=== PATIENT | male | born 1940 | race Caucasian/White ===

== ENCOUNTER 2022-12-25 23:32 | Inpatient (IN) | payer MEDICARE, OTHER ==
[~2022-12-25] VITALS: Ht 175.3 cm; Wt 69.9 kg
[2022-12-25] MEDS ORDERED: AMLO5 PO (23:55)
[2022-12-25] MEDS ORDERED: Aspir 8181 MG PO (23:55)
[2022-12-25] MEDS ORDERED: ATEN100 PO (23:56)
[2022-12-25] MEDS ORDERED: ATOR80 PO (23:56)
[2022-12-25] MEDS ORDERED: LISI20 PO (23:56)
--- NOTE | 2022-12-26 01:58 | NUR ---
NEW ADMIT PT NEW ADMIT TO THE FLOOR FROM [facility]. ARRIVED IN NO DISTRESS, CIRCULATION AND SENSATION IN RLE INTACT. PT A/OX4, ON RA, TELE IN PLACE. SR @101 WITH BBB AND PROLONGED QTC @ .52. SURGICAL [place] COMPLETE, PT NPO FOR SURGERY TOMORROW. MEDICATED FOR PAIN.
--- NOTE | 2022-12-26 03:41 | NUR ---
TELE NOTIFIED PRIMARY RN OF [facility]. PRIMARY RN ASSESSED PT AND OBTAINED VS. VSS AND PT ASYMPTOMATIC. THIS RN NOTIFIED DR. DOTSON + EKG OBTAINED. DR. DOTSON AT BEDSIDE TO REVIEW EKG. DR. DOTSON PLACING NEW ORDERS FOR LABS. WILL CONT TO MONITOR.
--- NOTE | 2022-12-26 04:03 | NUR ---
VSS. SEE PREVIOUS NOTE FOR TELE CHANGES. PT HAS SLEPT ON AND OFF SINCE ARRIVING TO THE FLOOR. PT MEDICATED FOR PAIN WITH TYLENOL AND FENTYNAL. CIRCULATION AND SENSATION REMAINS INTACT IN RLE. VOIDING W/O DIFFICULTY. PLAN FOR PT TO HAVE AN ORTHO CONSULT TODAY. PT IS CURRENTLY RESTING IN BED, IN NO DISTRESS, CALL LIGHT IN REACH
[2022-12-26 04:28] LABS: Hematocrit 29.9 % (37.0-53.0); Hemoglobin 10.4 g/dL (13.5-17.5); Mean Corpuscular HGB 31.2 pg (26.0-34.0); Mean Corpuscular HGB Conc 34.8 g/dL (31.5-36.5); Mean Corpuscular Volume 90 fL (80-100); Mean Platelet Volume 11.1 fL (9.1-12.4); Platelet Count 165 K/mm3 (150-400); RDW Standard Deviation 46.1 fL (35.1-46.3); Red Blood Cell Count 3.33 M/mm3 (4.30-5.90); White Blood Cell Count 10.22 K/mm3 (4.00-11.30)
[2022-12-26 04:52] LABS: Bun/Creatinine Ratio 18.3 (12.0-20.0); Calcium, Blood 8.7 mg/dL (8.5-10.1); Creatinine, Blood 2.3 mg/dL (0.60-1.20)
--- NOTE | 2022-12-26 10:02 | NUR ---
"Spiritual Care | Rapid Reponse - NOK Contact After Rapid response is called, Pt. has been transfered to ICU11. This cook helper contacted Pts. son listed as NOK by phone. Palliative care nurse Fabiana bachsed the call. Pts. son verbalized that while the Pt. is listed as Full Code that he did not believe the Pt. would want heroic measures taken. Son verbalized the Pt. regretted the decision for life support that his endured. The son verbalized gratitude for the call and will remain available at [phone] for further support decisions."
--- NOTE | 2022-12-26 10:13 | NUR ---
Pt arrived to ICU 11 at 0951 from Medical floor s/p rapid response for N/V and brdaycardia.
[2022-12-26 10:39] LABS: Magnesium, Blood 2.2 mg/dL (1.6-2.4); Phosphorus, Blood 3.2 mg/dL (2.5-4.9)
--- NOTE | 2022-12-26 12:08 | NUR ---
AT AROUND 0945 THIS RN WAS NOTIFIED BY TELEMETRY THAT THE PT WAS IN ASYSTOLE. THIS RN IMMEDIATELY CHECKED ON THE PATIENT AND FOUND HIM RESPONSIVE BUT C/O NAUSEA. PT'S ALERTNESS BEGAN TO WAX AND WANE AND PT APPEARED PALE. THIS RN THEN CALLED A RAPID RESPONSE AND PT WAS TRANSPORTED TO ICU. REPORT GIVEN TO BUSINESS DEVELOPMENT PROFESSIONAL.
--- NOTE | 2022-12-26 12:54 | NUR ---
Spoke w/ OR and pt was not on the shcedule for surgery today. Ordering a diet so pt can eat per Dr. Mckeon.
--- NOTE | 2022-12-26 17:13 | NUR ---
Called report to David RN for PCU #8. RN will transport pt from ICU to PCU w/ personal effects.
--- NOTE | 2022-12-26 17:14 | NUR ---
Pt's daughter is Maile Garza, cell # [phone]. She is located in [place], [place] and would like updates on any changes.
--- NOTE | 2022-12-26 17:35 | NUR ---
RN assisted Shameka JOHNSTON w/ transporting pt from ICU # 11 to PCU #8. Brought all of his personal effects, clothing, cellphone and prosethic leg. All were left in his new room in PCU #8 and his cellphone was left on his lap.
[2022-12-27 03:41] LABS: Hematocrit 29.1 % (37.0-53.0); Hemoglobin 9.6 g/dL (13.5-17.5); Mean Corpuscular HGB 30.4 pg (26.0-34.0); Mean Corpuscular Volume 92 fL (80-100); Mean Platelet Volume 11.7 fL (9.1-12.4); Platelet Count 167 K/mm3 (150-400); RDW Coefficient Variation 14.6 % (11.7-14.2); RDW Standard Deviation 49.2 fL (35.1-46.3); Red Blood Cell Count 3.16 M/mm3 (4.30-5.90)
[2022-12-27 04:02] LABS: Albumin, Blood 2.9 g/dL (3.4-5.0); Anion Gap 5 mmol/L (6-16); Blood Urea Nitrogen 48 mg/dL (8-24); Bun/Creatinine Ratio 17.4 (12.0-20.0); CO2, Blood 22 mmol/L (21-32); Calcium, Blood 8.4 mg/dL (8.5-10.1); Chloride, Blood 109 mmol/L (98-108); Creatinine, Blood 2.76 mg/dL (0.60-1.20); Glomerular Filtration Rate 22 (60-); Glucose, Blood 106 mg/dL (70-99); Phosphorus, Blood 3.4 mg/dL (2.5-4.9); Potassium, Blood 4.6 mmol/L (3.5-5.5); Sodium, Blood 136 mmol/L (136-145)
--- NOTE | 2022-12-27 05:13 | NUR ---
SHIFT SUMMARY: PT ALERT AND ORIENTED X4, ABLE TO FOLLOW COMMANDS AND MAKE NEEDS KNOWN. COOPERATIVE WITH CARE. BP STABLE, HR SR 60'S, AFEBRILE, ON RA, SATURATIONS >95%. RESPIRATIONS EVEN AND UNLABORED. PT WITH R. FEMUR FRACTURE, SENSATION INTACT, SKIN WARM AND DRY. MEDICATED X2 FOR PAIN THIS SHIFT. NO REPORTS OF N/V. [facility] NOTED ON TELEMETRY, DR. LIVINGSTON AWARE, SEE MD NOTE. REPOS Q2 TO MAINTAIN SKIN INTEGRITY. PT INC OF URINE AT NIGHT, ATTENDS CHANGED. NO BM. PT REPORTS LIVING ALONE IN TRAILER, POSSIBLE PT/OT, HOME HEALTH EVAL NEEDEED. CURRENTLY NPO FOR POSSIBLE SURG IN AM. BED IN LOW, CALL LIGHT IN REACH, WILL REPORT TO ONCOMING RN.
--- NOTE | 2022-12-27 11:02 | NUR ---
Pt. is somnilent but responds when I enter the room. Pt. is pleasant but unsettled about the discomfort in his hip. Listen with empathy and a calming presence. Normalize the Pt. experience, Pt. displays evidence of being uncomfortable and attempts to reposition himself. PT. also displays evidence of engagement and awareness. Prayed with Pt. Pt. verbalized gratitude for the spiritual care visit.
[2022-12-28 04:05] LABS: Hematocrit 26.5 % (37.0-53.0); Mean Corpuscular HGB 30.9 pg (26.0-34.0); Mean Corpuscular Volume 91 fL (80-100); Mean Platelet Volume 11.6 fL (9.1-12.4); Platelet Count 160 K/mm3 (150-400); RDW Coefficient Variation 14.4 % (11.7-14.2); RDW Standard Deviation 48.6 fL (35.1-46.3); Red Blood Cell Count 2.91 M/mm3 (4.30-5.90); White Blood Cell Count 9.92 K/mm3 (4.00-11.30)
[2022-12-28 04:19] LABS: Albumin, Blood 2.6 g/dL (3.4-5.0); Anion Gap 8 mmol/L (6-16); Blood Urea Nitrogen 48 mg/dL (8-24); Bun/Creatinine Ratio 18.3 (12.0-20.0); CO2, Blood 21 mmol/L (21-32); Calcium, Blood 8.3 mg/dL (8.5-10.1); Chloride, Blood 108 mmol/L (98-108); Creatinine, Blood 2.63 mg/dL (0.60-1.20); Glomerular Filtration Rate 23 (60-); Glucose, Blood 110 mg/dL (70-99); Phosphorus, Blood 3.4 mg/dL (2.5-4.9); Potassium, Blood 4.5 mmol/L (3.5-5.5); Sodium, Blood 137 mmol/L (136-145)
--- NOTE | 2022-12-28 05:08 | NUR ---
SHIFT SUMMARY: PT WITH NO ACUTE CHANGES THIS SHIFT, REMAINS ALERT AND ORIENTED X4, ABLE TO FOLLOW COMMANDS AND MAKE NEEDS KNOWN. BP STABLE, HR SR 70'S, [facility] NOTED IN TELEMETRY, MD AWARE. NO COMPLAINTS OF CP/PRESSURE THROUGHOUT THE NIGHT. PT NPO SINCE 0000 FOR SURG IN AM. ABLE TO USE URINAL IND AT BEDSIDE. NO BM. BED IN LOW, CALL LIGHT IN REACH, WILL REPORT TO ONCOMING RN.
--- NOTE | 2022-12-28 07:23 | NUR ---
ASSUMED CARE: PT SITTING UPRIGHT IN BED TALKING TO STAFF. ON RA. NSR WITH ST DEPRESSION AND BBB IN 80S ON TELE. TALKING TO DAUGHTER ON PHONE. NO ACUTE NEEDS AT THIS TIME.
--- NOTE | 2022-12-28 10:56 | NUR ---
OR CALLED TO VERIFY NPO STATUS AND THAT RECENT EKG HAS BEEN DONE. PT HAS BEEN NPO SINCE NH. EKG COMPLETED. DIETITIAN AT BEDSIDE AND PT C/O FEELING DEHYDRATED. REPORTED TO DIETITIAN THAT PT HAS BEEN CONFUSED, ASKING IF CIGARS WERE ON HIS TABLE AND IF HIS TRUCK WAS IN HALLWAY. DIETITIAN STATES SHE WILL CALL DR AND DISCUSS SYMPTOMS AND ASK ABOUT FLUID ORDERS DUE TO NPO STATUS.
--- NOTE | 2022-12-28 11:20 | NUR ---
PT TAKEN TO XRAY PER ORDERS FROM DR CAGE. ESCORTED VIA [facility]
--- NOTE | 2022-12-28 11:54 | NUR ---
DR CAGE CAME TO SEE PT AND DISCUSSED PLAN FOR SURGERY. DR AWARE THAT PT HAS BEEN NPO AND THAT THIS RN WAS TOLD BY NIGHT RN THAT CARDIOLOGY SIGNED OFF. DR STATES TO KEEP PT NPO AT THIS TIME.
--- NOTE | 2022-12-28 13:43 | NUR ---
PT TAKEN TO SURGERY BY OR STAFF AT THIS TIME.
--- NOTE | 2022-12-28 14:09 | NUR ---
Surgical site prepped with 2% Chlorhexidine cloth wipe. History, Chart, Medications and Allergies reviewed before start of procedure.Lungs clear T/O to Auscultation. PER CALL TO DR. LIVINGSTON, PATIENT HAS CARDIAC CLEARANCE FOR SURGERY.
--- NOTE | 2022-12-28 15:04 | NUR ---
REPORT GIVEN TO YEHUDA COFFEY. PT CURRENTLY IN OR AND WILL BE TRANSFERRED TO ROOM 217 AFTER SURGERY. DAY SURGERY AWARE OF TRANSFER.
--- NOTE | 2022-12-28 18:17 | NUR ---
POST OP: REPORT RECEIVED FROM SAFETY RISK LEADYEHUDA SOSA. PT TO UNIT AT ABOUT 1745. PT IS A/O, VSS. SURGICAL SITE WNL. R POPLITEAL PULSE +2, R LEG IS WARM AND PINK. PT DENIES PAIN/NAUSEA AT THIS TIME. LUNGS ARE CLEAR AND DIM AT BASES. PT INSTRUCTED TO USE CALL LIGHT, BED ALARM ON FOR SAFETY. WILL CTM AND PASS REPORT TO NOC YEHUDA.
--- NOTE | 2022-12-29 04:43 | NUR ---
SHIFT SUMMARY POD1 R HIP GAMMA NAIL WITH GAUZE AND FOAM TAPE. PT HAS SOME CONFUSION LAST NIGHT, GOT BETTER T/O THE SHIFT, APPEARS MORE CLEAR IN MENTATION THIS MORNING. BED ALARM ON. HE ALSO TRIED TO PICK ON HIS DRESSING LAST NIGHT. REORIENT EASILY. DRESSING CHANGED, VICKY INTACT WITH SMALL SEROSANG DRAINAGE. PT REPORTS MILD TO NO PAIN. MEDICATED WITH TYLENOL LAST NIGHT. TOLERATING PO INTAKE. DENIES N/V. PT HAD SPONGEBATH THIS MORNING. LINEN CHANGED. VOIDING. PERICARE DONE. CALLED DAUGHTER LAST NIGHT AND PROVIDED AN UPDATE. R BKA. WITH STUMP/ACEWRAP. IV ABX ADMINSTERED. CALL LIGHT WITHIN REACH. WILL PROVIDE REPORT TO ONCOMING NURSE.
[2022-12-29 05:46] LABS: BASOPHILS ABSOLUTE AUTO 0.01 K/mm3 (0.00-0.23); BASOPHILS PERCENT AUTO 0 % (0-2); EOSINOPHILS PERCENT AUTO 0 % (0-6); Hematocrit 25.5 % (37.0-53.0); Hemoglobin 8.9 g/dL (13.5-17.5); IMMATURE GRAN ABSOLUTE AUTO 0.07 K/mm3 (0.00-0.10); IMMATURE GRAN PERCENT AUTO 1 % (0-1); LYMPHOCYTES ABSOLUTE AUTO 0.62 K/mm3 (0.84-5.20); LYMPHOCYTES PERCENT AUTO 5 % (21-46); MONOCYTES ABSOLUTE AUTO 0.92 K/mm3 (0.16-1.47); MONOCYTES PERCENT AUTO 7 % (4-13); Mean Corpuscular HGB 31.2 pg (26.0-34.0); Mean Corpuscular HGB Conc 34.9 g/dL (31.5-36.5); Mean Corpuscular Volume 90 fL (80-100); Mean Platelet Volume 11.9 fL (9.1-12.4); NEUTROPHILS PERCENT AUTO 88 % (41-73); Platelet Count 173 K/mm3 (150-400); RDW Coefficient Variation 14.2 % (11.7-14.2); RDW Standard Deviation 46.6 fL (35.1-46.3); Red Blood Cell Count 2.85 M/mm3 (4.30-5.90); White Blood Cell Count 13.22 K/mm3 (4.00-11.30)
[2022-12-29 06:17] LABS: Albumin, Blood 2.5 g/dL (3.4-5.0); Anion Gap 9 mmol/L (6-16); Blood Urea Nitrogen 47 mg/dL (8-24); Bun/Creatinine Ratio 18.8 (12.0-20.0); CO2, Blood 19 mmol/L (21-32); Calcium, Blood 8.1 mg/dL (8.5-10.1); Chloride, Blood 106 mmol/L (98-108); Glomerular Filtration Rate 25 (60-); Glucose, Blood 137 mg/dL (70-99); Phosphorus, Blood 3.4 mg/dL (2.5-4.9); Potassium, Blood 4.8 mmol/L (3.5-5.5); Sodium, Blood 134 mmol/L (136-145)
--- NOTE | 2022-12-29 17:37 | NUR ---
SHIFT SUMMARY: POD 1 RIGHT HIP NAILING NO SIGNIFICANT CHANGES DURING SHIFT. HIS RIGHT HIP HAS GAUZE WITH FOAM TAPE THAT IS C/D/I. PAIN IS MANAGED THIS SHIFT WITH PO TYLENOL. HE IS TOLERATING PO INTAKE AND IS VOIDING. HE IS TO BE NON WEIGHT BEARING ON THE RIGHT HIP DUE TO HIS PROSTHETIC BEING TOO HEAVY FOR HIS HIP NAILING. HE WAS ABLE TO STAND AT THE SIDE OF THE BED WITH PHYSICAL THERAPY EARLIER TODAY. HIS PRIOR RIGHT BKA STUMP HAS BRYAN WRAP THAT IS C/D/I. DAUGHTER IS AT BEDSIDE. PATIENT IS LAYING IN BED WITH CALL LIGHT IN REACH.
[2022-12-30 04:19] LABS: Hematocrit 24.2 % (37.0-53.0); Hemoglobin 8.2 g/dL (13.5-17.5); Mean Corpuscular HGB 30.7 pg (26.0-34.0); Mean Corpuscular HGB Conc 33.9 g/dL (31.5-36.5); Mean Corpuscular Volume 91 fL (80-100); Mean Platelet Volume 11.7 fL (9.1-12.4); Platelet Count 184 K/mm3 (150-400); RDW Coefficient Variation 14.3 % (11.7-14.2); RDW Standard Deviation 47.4 fL (35.1-46.3); Red Blood Cell Count 2.67 M/mm3 (4.30-5.90); White Blood Cell Count 10.03 K/mm3 (4.00-11.30)
[2022-12-30 04:55] LABS: Albumin, Blood 2.3 g/dL (3.4-5.0); Anion Gap 6 mmol/L (6-16); Blood Urea Nitrogen 53 mg/dL (8-24); Bun/Creatinine Ratio 20.2 (12.0-20.0); CO2, Blood 20 mmol/L (21-32); Chloride, Blood 108 mmol/L (98-108); Creatinine, Blood 2.62 mg/dL (0.60-1.20); Free Thyroxine 1.36 ng/dL (0.70-1.60); Glomerular Filtration Rate 23 (60-); Glucose, Blood 115 mg/dL (70-99); Phosphorus, Blood 2.6 mg/dL (2.5-4.9); Potassium, Blood 5.1 mmol/L (3.5-5.5); Sodium, Blood 134 mmol/L (136-145); Triiodothyronine, Free 1.21 pg/mL (2.18-3.98)
--- NOTE | 2022-12-30 05:23 | NUR ---
SHIFT SUMMARY NO ACUTE CHANGES OVERNIGHT. POD2 GAMMA NAIL ON R SIDE HIP WITH GAUZE AND PRESSURE TAPE, REMAINDED CDI. PT REPORTS FEELING SORE ON R HIP, MINIMAL PAIN. PAIN MANAGED WITH TYLENOL. TOLERATING PO INTAKE. VSS. TELE SR WITH BBB AT 70'S. DENIES CHEST PAIN, SOB, NAUSEA AND VOMITING. PT ALSO DENIES N/T. NWB ON R LEG. PT HAS PROSTHETICS. HX R BKA, R SIDE LEG WITH STUMP/BRYAN WRAP. AOX4. CALL LIGHT WITHIN REACH. WILL PROVIDE REPORT TO ONCOMING NURSE.
--- NOTE | 2022-12-30 08:29 | NUR ---
TELE CALLED WITH CONCERNS OF INCREASING [facility] ELEVATION. VSS. NOTIFIED, PER MD ARECHIGA TELE PT HAS HAD THESE EPISODES SINCE ADMIT. PRIMARY RN NOTIFIED.
--- NOTE | 2022-12-30 16:22 | NUR ---
SHIFT SUMMARY POD 2 R HIP GAMMA NAIL PT CONTINUES TO DENY PAIN TODAY, UP IN THE CHAIR FOR MOST OF SHIFT. HE REPORTS BEING MUCH MORE COMFORTABLE IN THE CHAIR. DRESSINGS REMAIN CDI. PT LOOKS FORWARD TO CONTINUING TO WORK WITH THERAPY AND GETTING CLOSER TO DISCHARGING. TELE DC'D DURING SHIFT, PT DENIES CP OR SOB.
--- NOTE | 2022-12-31 05:03 | NUR ---
SHIFT SUMMARY NO ACUTE CHANGES OVERNIGHT. PT VOIDING IND IN HIS URINAL. STAND AND PVOT TO CHAIR AND BED. TOLERATING PO INTAKE DENIES N/V. PT DENIES N/T ON R HIP. R HIP WITH GAUZE AND PRESSURE TAPE. VSS. DENIES CP AND SOB. PT ON ROOM AIR. PT REPORTS MINIMAL PAIN TO NONE AT REST. CALL LIGHT WITHIN REACH. WILL PROVIDE REPORT TO ONCOMING NURSE.
[2022-12-31 08:38] LABS: Albumin, Blood 2.7 g/dL (3.4-5.0); Anion Gap 5 mmol/L (6-16); Blood Urea Nitrogen 53 mg/dL (8-24); CO2, Blood 23 mmol/L (21-32); Calcium, Blood 8.4 mg/dL (8.5-10.1); Chloride, Blood 105 mmol/L (98-108); Creatinine, Blood 2.52 mg/dL (0.60-1.20); Glomerular Filtration Rate 24 (60-); Glucose, Blood 102 mg/dL (70-99); Potassium, Blood 5.1 mmol/L (3.5-5.5); Sodium, Blood 133 mmol/L (136-145)
[2022-12-31] MEDS ORDERED: ACET325 PO (11:23)
[2022-12-31] MEDS ORDERED: ENOX30I SC (11:24)
[2022-12-31] MEDS ORDERED: MIRALAX17 GM PO (11:26)
--- NOTE | 2022-12-31 15:23 | NUR ---
AQUACEL DRESSING APPLIED
--- NOTE | 2022-12-31 18:14 | NUR ---
SHIFT SUMMARY PT A&OX4, VSS/RA, PENELOPE PO, VOIDING WELL/URINAL, PAIN MANAGED WITH TYLENOL, DECLINED GETTING OUT OF BED TODAY/REPOSITIONS SELF WELL, AQUACEL DRESSING APPLIED TODAY. WILL REPORT TO ONCOMING NOC RN.
--- NOTE | 2023-01-01 04:32 | NUR ---
SHIFT SUMMARY NO ACUTE CHANGES. PT SLEPT WELL. TYLENOL FOR PAIN MANAGEMENT PRN. AQUACEL DRESSINGS TO R HIP REMAIN UNCHANGED. 1 MODERATE ASSIST TO STAND/PIVOT TO BSC USING FWW + GB. USING URINAL TO VOID. VSS. CALL LIGHT WITHIN REACH.
--- NOTE | 2023-01-01 11:37 | NUR ---
Pt. is sitting up in a recliner and is dressed and ready for D/C. Pt. welcomes my visit and rapport is re-established. Pt. displayed evidence of engagement and motivation to getting stronger and become more independant. Prayed with Pt. Pt. verbalized gratitude for the spiritual care visit asnd for the support during his hospitalization.
--- NOTE | 2023-01-01 13:14 | NUR ---
DISCHARGE SUMMARY PT A&OX4, VSS/RA, PENELOPE PO, VOIDING & BMs/URINAL/BSC, PAIN MANAGED WITH TYLENOL, AMB STAND PIVOT WITH MOD 1 PP ASSIST W/FWW & GB. DC INS PROVIDED. PT AND DAUGHTER AND SON AND [id number] REP UNDERSTANDING THOSE INSTRUCTIONS INCLUDING NWB-DO NOT WEAR PROSTHESIS UNTIL FU WITH SURGEON-SCHEDULED APPT, FU WITH CARDIOLOGY/SCHEDULED APPT, THEY HAVE WC AND BSC IN CAR, MEDS ARE [facility], HAVE PROSTHESIS REFITTED WITH [facility] (THEY HAVE ONE DOWN THE [address] TO DAUGHTER'S HOUSE IN [place]), DRESSING CHANGES. LEFT FLOOR VIA WC WITH [facility], WITH ALL PERSONAL POSSESSIONS INCLUDING DC PACKET, AQUACEL DRESSINGS, TO GO HOME WITH DAUGHTER/SON/DIL. DRESSING CHANGED PRIOR TO DC TODAY. .
--- NOTE | 2023-01-02 08:51 | NUR ---
RECEIVED CALL FROM TICO, PATIENTS DAUGHTER. DISCOVERED THE IV'S WERE LEFT IN PLACE AT DISCHARGE. I PLACED CALL TO [facility] AND SPOKE WITH YEHUDA BROCK. VINOD WILL CALL TICO & MAKE ARRANGEMENTS TO REMOVE IV'S FROM PATIENT. CALLED TICO AND ADVISED HER OF PLAN & PROVIDED VINOD'S NAME & PHONE NUMBER OF IN CASE FURTHER FOLLOW UP IS NEEDED.
== END 2023-01-01 12:39 | disposition home health service (06) | DRG 481 ==
LOC: SURS 23:32 → PCU 23:32 → ICUW 23:32 → SURS 12-26 00:59 → ICUW 12-26 10:00 → PCU 12-26 17:22 → ICUW 12-26 17:22 → SURS 12-28 14:39 → PCU 12-28 14:39 → SURS 01-01 12:39
PROVIDERS: Internal Medicine; Orthopaedic Surgery; ADMIT Internal Medicine
PROC: 0QH634Z Insertion of Internal Fixation Device into Right Upper Femur, Percutaneous Approach (ICD-10-PCS; principal; 2022-12-28 14:00)
DX: S72.141A Displaced intertrochanteric fracture of right femur, initial encounter for closed fracture (principal); N17.9 Acute kidney failure, unspecified; I45.5 Other specified heart block; I44.1 Atrioventricular block, second degree; I44.7 Left bundle-branch block, unspecified; R11.2 Nausea with vomiting, unspecified; I25.5 Ischemic cardiomyopathy; I25.10 Atherosclerotic heart disease of native coronary artery without angina pectoris; I95.9 Hypotension, unspecified; M19.90 Unspecified osteoarthritis, unspecified site; N18.30 Chronic kidney disease, stage 3 unspecified; D63.1 Anemia in chronic kidney disease; I12.9 Hypertensive chronic kidney disease with stage 1 through stage 4 chronic kidney disease, or unspecified chronic kidney disease; F17.210 Nicotine dependence, cigarettes, uncomplicated; R77.8 Other specified abnormalities of plasma proteins; R00.1 Bradycardia, unspecified; W19.XXXA Unspecified fall, initial encounter; Z89.511 Acquired absence of right leg below knee; Z95.1 Presence of aortocoronary bypass graft; Z95.5 Presence of coronary angioplasty implant and graft; Z91.14 Patient's other noncompliance with medication regimen; Z79.82 Long term (current) use of aspirin; Z79.02 Long term (current) use of antithrombotics/antiplatelets; Z79.811 Long term (current) use of aromatase inhibitors; Z79.899 Other long term (current) drug therapy
CPT/HCPCS: 36415; 73552; 73560-RT; 73700; 80048; 80069; 82550; 82947; 83735; 84100; 84439; 84443; 84481; 84484; 85025; 85027; 93005; 93010; 97110; 97161; 97530; A9270; C1713; C1769; C8929; C9113; J0360; J0690; J1100; J1650; J2250; J2405; J2550; J2704; J3010; J7030; J7120; Q9957